=== PATIENT | female | born 1990 | race Two or more races ===

== ENCOUNTER 2021-07-07 07:20 | Emergency (ER) | payer OTHER ==
[~2021-07-07] VITALS: Ht 157.5 cm; Wt 102.5 kg
--- NOTE | 2021-07-07 07:35 | NUR ---
BIBRA 89 FROM HOME C/O PARTIAL FACIAL ASYMETRY ON LOWER LIP. DENIES SLURRED SPEECH. PT REPORTS WAS RECENTLY TAKING ANTIBIOTICS FOR AN EAR INFECTION. AAOX4, BREATHING EVEN AND UNLABORED, SPEAKS CLEARLY AND IN FULL SENTENCES. NO DRIFT IN EXTREMITIES. STRENGTH 5/5 IN ALL EXTREMITIES. NO LOSS OF SENSATION NOTED. WILL CONTINUE TO MONITOR.
--- NOTE | 2021-07-07 07:59 | NUR ---
PT AMBULATED TO RESTROOM
--- NOTE | 2021-07-07 08:07 | NUR ---
URINE COLLECTED AND SENT TO LAB
--- NOTE | 2021-07-07 08:08 | NUR ---
CATH LAB AT BEDSIDE FOR BLOOD DRAW
--- NOTE | 2021-07-07 08:21 | NUR ---
TAKEN TO CT
[2021-07-07 08:29] LABS: BASOPHILS # (AUTO) 0.1 K/uL (0.0-0.2); BASOPHILS % (AUTO) 0.9 % (0.0-2.0); EOSINOPHILS % (AUTO) 1.7 % (0.0-6.0); HEMATOCRIT 39 % (33-45); HEMOGLOBIN 12.9 g/dL (11.5-14.8); LYMPHOCYTES # (AUTO) 1.6 K/uL (0.8-4.8); LYMPHOCYTES % (AUTO) 26.9 % (20.0-44.0); MEAN CORPUSCULAR HGB CONC 33 g/dl (31.0-36.0); MEAN CORPUSCULAR VOLUME 82 fL (82-100); MONOCYTES # (AUTO) 0.3 K/uL (0.1-1.30); MONOCYTES % (AUTO) 5.9 % (2.0-12.0); NEUTROPHILS # (AUTO) 3.8 K/uL (1.8-8.9); NEUTROPHILS % (AUTO) 64.6 % (43.0-81.0); PLATELET COUNT (AUTO) 378 K/uL (150-450); RED BLOOD CELL COUNT(AUTO) 4.77 MIL/uL (4.0-5.2); WHITE BLOOD COUNT (AUTO) 5.9 K/uL (4.3-11.0)
[2021-07-07 08:55] LABS: CREATININE 0.7 mg/dL (0.6-1.3); POTASSIUM 3.7 mmol/L (3.5-5.1)
[2021-07-07 09:02] LABS: ALBUMIN 3.8 g/dL (3.4-5.0); BILIRUBIN,TOTAL 0.4 mg/dL (0.2-1.0); TOTAL PROTEIN, SERUM 8.2 g/dL (6.4-8.2)
[2021-07-07] MEDS ORDERED: PRED20TA PO (10:11)
[2021-07-07] MEDS ORDERED: AMOX1TAB16 PO (10:11)
[2021-07-07] MEDS ORDERED: predniSONE 20 MG TABLET ONE (10:12)
--- NOTE | 2021-07-07 10:24 | NUR ---
Patient discharged to home in stable condition. Written and verbal after care instructions given. Patient verbalizes understanding of instruction.
[2021-07-07 10:25] VITALS: BP 129/73
[2021-07-07] MEDS ORDERED: predniSONE 20 MG TABLET PO ONE (10:30)
--- NOTE | 2021-07-07 10:48 | NUR ---
IV removed. Catheter intact and site benign. Pressure and 4x4 applied to site. No bleeding noted.Patient discharged to home in stable condition. Written and verbal after care instructions given. Patient verbalizes understanding of instruction.
== END 2021-07-07 10:49 | disposition home or self-care (01) ==
LOC: ER 07:27
DX: G51.0 Bell's palsy (principal); H66.91 Otitis media, unspecified, right ear; J45.909 Unspecified asthma, uncomplicated; E03.9 Hypothyroidism, unspecified; Z90.89 Acquired absence of other organs; Z79.899 Other long term (current) drug therapy
CPT/HCPCS: 36415; 70450; 80053; 84703; 85025; 99284; J7512